=== PATIENT | female | born 1955 | race Two or more races ===

== ENCOUNTER → 2017-09-06 | Outpatient (CLI) | payer MEDICAID | LOC: CIMAGING 14:14 | PROVIDERS: ATTEND Internal Medicine | DX: Z12.31 Encounter for screening mammogram for malignant neoplasm of breast (principal) | CPT/HCPCS: G0202 ==

== ENCOUNTER 2018-01-03 13:57 | Emergency (ER) | payer MEDICAID, OTHER ==
[2018-01-03] MEDS ORDERED: LET GEL TOPICAL 1 EA SYR TP ONE (14:23)
--- NOTE | 2018-01-03 14:54 | EDPHY ---
H & P Time Seen by Provider: 01/03/18 14:18 HPI/ROS: CHIEF COMPLAINT: Dog bite both legs HISTORY OF PRESENT ILLNESS: Patient was stopping at a business and was bit by a dog at that dizziness, as she approached. It then went away did not appear ill in any way and she got bit on the left thigh and behind the right knee. She is anticoagulated on Eliquis and was concerned about bleeding. REVIEW OF SYSTEMS: No weakness or numbness distally and no foreign body sensation PAST MEDICAL HISTORY: Hypothyroid and AFib on Eliquis, hepatitis-C. Last tetanus vaccine in 2011 Social history: Nonsmoker General Appearance: Alert and conversant, cooperative. Ambulatory. Two superficial dog bite richard each 2 cm on the left anterior distal thigh. Left thighs compartments are soft and no active bleeding. Normal neurovascular distally. Behind the right knee on the proximal calf there are for linear lacerations each 2 cm and not actively bleeding. Distal neurovascular intact and compartments are soft. Does not appear to be tissue loss. Examined and no foreign body found. No bony tenderness and normal range of motion of ankles and knees and hips. Emergency Department course/MDM: Anesthetized with 8 mL of 0.5% bupivacaine with epinephrine and standard wound care and dressing applied. I discussed secondary intention versus delayed primary closure with the patient , she would prefer secondary intention if it would give acceptable healing. I think this is the safest and most reasonable course of action, she will be placed on oral Augmentin and was warned that it may take several weeks to fully heal up. Does not appear to require any specific actions to stop bleeding at this time other than pressure and dressing. Reporting to animal Control per nursing staff standard protocol. Smoking Status: Never smoked Constitutional: Initial Vital Signs Temperature (C) 36.6 C 01/03/18 14:11 Heart Rate 95 01/03/18 14:11 Respiratory Rate 18 01/03/18 14:11 Blood Pressure 151/102 H 01/03/18 14:11 O2 Sat (%) 95 01/03/18 14:11 O2 Delivery Mode Room Air Allergies/Adverse Reactions: Sulfa (Sulfonamide Antibiotics) Allergy (Verified 04/27/15 19:32) Home Medications: Medication Instructions Recorded Calcium Carbonate [Oyster Shell 500 mg PO DAILY 03/03/15 Calcium 500 mg (*)] Levothyroxine [Synthroid 88 mcg 88 mcg PO DAILY06 03/03/15 (*)] Multivitamins [Multivitamin (*)] 1 each PO DAILY 03/03/15 [place]-3 Fatty Acids [Fish Oil 1000 1,000 mg PO DAILY 03/03/15 mg (*)] Acetaminophen [Tylenol 325mg (*)] 650 mg PO Q6 PRN #0 tab 03/06/15 Aspirin EC [Aspirin EC 325 mg (*)] 325 mg PO DAILY #30 tab 04/02/15 Atorvastatin Calcium [Lipitor 10 10 mg PO DAILY #30 tab 04/02/15 mg (*)] Melatonin [Melatonin 3 MG (*)] 6 mg PO HS #30 tab 04/02/15 Sennosides/Docusate Sodium 1 - 2 tab PO BID #60 tab 04/02/15 [Senokot-S] Apixaban [Eliquis] 04/27/15 Diltiazem Cd [Cardizem ER Q24hr] 120 mg PO DAILY #5 cap 04/27/15 Lipitor 04/27/15 Amoxicillin/Clavulanate Pot 875 mg PO BID #20 tab 01/03/18 [Augmentin 875 mg tab] MDM/Departure - MDM Medications Given: Discontinued Medications Amoxicillin/Clavulanate Potassium (Augmentin 875mg) 875 mg PO EDNOW ONE PRN Reason: Protocol Stop: 01/03/18 15:09 Last Admin: 01/03/18 15:36 Dose: 875 mg Tetracaine/Epinephrine/Lidocaine (Let Gel Topical) 3 ea TP EDNOW ONE Stop: 01/03/18 14:24 Last Admin: 01/03/18 14:31 Dose: 3 ea - Depart Disposition: Home, Routine, Self-Care Clinical Impression: Dog bite of lower leg Qualifiers: Encounter type: initial encounter Laterality: unspecified laterality Qualified Code(s): S81.859A - Open bite, unspecified lower leg, initial encounter Condition: Good Instructions: Amoxicillin/Clavulanate Potassium (By mouth), Animal Bite (ED) Additional Instructions: Keep dressing on for the next 48 hr, my then you can clean with soap and water and sterile dressing as discussed. Return for redness or swelling, drainage from wounds, fever. Prescriptions: Amoxicillin/Clavulanate Pot [Augmentin 875 mg tab] 875 mg PO BID #20 tab Referrals: Karolyn Hernandez MD [Medical Doctor] - As per Instructions
[2018-01-03] MEDS ORDERED: AMOXICILLIN/CLAVULANATE POT 875/125 MG TAB PO ONE (15:08)
[2018-01-03 15:41] VITALS: BP 150/62
== END 2018-01-03 15:39 | disposition home or self-care (01) ==
LOC: CED 13:57
DX: S81.852A Open bite, left lower leg, initial encounter (principal); Z79.01 Long term (current) use of anticoagulants; Z79.82 Long term (current) use of aspirin; W54.0XXA Bitten by dog, initial encounter

== ENCOUNTER → 2018-10-31 | Outpatient (CLI) | payer OTHER | LOC: CIMAGING 10:55 | PROVIDERS: ATTEND Internal Medicine | DX: Z12.31 Encounter for screening mammogram for malignant neoplasm of breast (principal); Z80.3 Family history of malignant neoplasm of breast ==